=== PATIENT | female | born 1960 | race Caucasian/White ===

== ENCOUNTER 2016-12-22 04:12 | Emergency (ER) | payer OTHER ==
[~2016-12-22] VITALS: Ht 157.5 cm; Wt 65.8 kg
--- NOTE | ~2016-12-22 | EKG ---
[place] [address] [facility] [place] [address] ELECTROCARDIOGRAM REPORT Name: NAMITA WIN Room #: REG IRWIN Jon#: [id number] Admission: 12/22/16 Attend Phys: Discharge: Date of : 58 Report #: [id number] THIS REPORT FOR: //name// [facility] ED Test Date: 2016-12-22 Test Time: 04:29:09 Pat Name: NAMITA WIN Department: Room: Gender: F Pharmacist Technician: BLANCHE : 1960 Requested By: Heather Rodrigues Order Number: [id number] MD: Measurements Intervals [place] Rate: 59 P: 40 MO: 174 QRS: -1 QRSD: 97 T: 8 QT: 427 QTc: 423 Interpretive Statements Sinus rhythm Compared to ECG 12/31/2011 09:26:20 Right bundle-branch block no longer present Myocardial infarct finding no longer present [email or web address] By: 8 8 Daija Choe MD /YUE
--- NOTE | ~2016-12-22 | EKG ---
[place] [address] [place] [address] [facility] [place] [address] ELECTROCARDIOGRAM REPORT Name: NAMITA WIN Room #: [facility]P [facility] [id number] Admission: 12/22/16 Attend Phys: Discharge: 12/22/16 Date of : 58 Report #: [id number] THIS REPORT FOR: //name// [facility] ED Test Date: 2016-12-22 Test Time: 04:29:09 Pat Name: NAMITA WIN Department: Room: Gender: F Agronomist: BLANCHE : 1960 Requested By: Heather Rodrigues Order Number: [id number] MD: David Garcia Measurements Intervals [place] Rate: 59 P: 40 VT: 174 QRS: -1 QRSD: 97 T: 8 QT: 427 QTc: 423 Interpretive Statements Sinus rhythm Possible inferior infarct, age indeterminate Compared to ECG 12/31/2011 09:26:20 Right bundle-branch block no longer present Electronically Signed On 12-22-2016 8:43:23 CDT by David Garcia [email or web address] <ELECTRONICALLY SIGNED> By: David Garcia MD, [facility] 12/22/16 0843 [id number] [id number] David Garcia MD, [facility] /EPI
[~2016-12-22 04:12] MED LIST: MULTIVITAMINS PO; NOHOMEMEDICATIONS; TOPROL XL25 MG PO
[2016-12-22 04:55] LABS: BASOPHILS 0.6 % (0.0-2.0); EOSINOPHILS 1.6 % (0.0-3.0); HEMATOCRIT 37.1 % (37.0-47.0); HEMOGLOBIN 12.5 gm/dL (12.0-15.0); LYMPHOCYTES 26.8 % (24.0-44.0); MCH 31.4 pg (26.0-34.0); MCHC 33.8 g/dL (28.0-37.0); MCV 92.9 fL (80.0-100.0); MONOCYTES 6.2 % (1.0-8.0); PLATELET COUNT 218 thou/uL (150-400); POLYS 64.8 % (36.0-66.0); RDW 12.7 % (10.5-14.5); WBC 7.7 thou/uL (4.0-11.0)
[2016-12-22 04:57] LABS: MANUAL DIFF NO
[2016-12-22 05:02] LABS: CALCIUM 8.7 mg/dL (8.5-10.1); CREATININE 0.7 mg/dL (0.6-1.0); POTASSIUM 3.8 mmol/L (3.5-5.1)
[2016-12-22 06:28] VITALS: BP 119/66
[2016-12-22] MEDS ORDERED: ANTIVERT25 MG PO (07:08)
[2016-12-22] MEDS ORDERED: ZOFRAN ODT4 MG PO (07:08)
== END 2016-12-22 07:38 | disposition home or self-care (01) ==
LOC: ER 04:12
PROVIDERS: Emergency Medicine
DX: R42 Dizziness and giddiness (principal); R11.2 Nausea with vomiting, unspecified

== ENCOUNTER → 2017-06-09 | Outpatient (CLI) | payer OTHER ==
[~2017-06-09] MED LIST changes: +ANTIVERT25 MG PO; +LOPRESSOR25 PO; +ZOFRAN ODT4 MG PO
--- NOTE | ~2017-06-09 | 2DMMODE ---
[facility] [place] [address] 2 D/M-MODE ECHOCARDIOGRAM Name: NAMITA WIN Room #: REG CL [facility]#: [id number] Admission: 06/09/17 Attend Phys: Jose Orr Discharge: Date of : 58 Date of Service: 06/09/17 1847 Report #: [id number] THIS REPORT FOR: //name// APPROVED REPORT Study performed: 06/09/2017 15:05:06 EXAM: Comprehensive 2D, Doppler, and color-flow Echocardiogram Patient Location: Echo lab Status: routine BSA: 1.67 BP: 100/73 mmHg Other Information Study Quality: Technically Difficult/Adequate Indications Palpitations Echo Enhancing Agent Indication: Endocardial border delineation Agent(s) / Amount(s) Used: Optison 3 cc 2D Dimensions RVDd: 37.26 mm LVEF(%): 68.22 (>50%) IVSd: 7.31 (7-11mm) LVOT Diam: 16.60 (18-24mm) LVDd: 46.81 mm PWd: 7.57 (7-11mm) Ascending Ao: 26.08 (22-36mm) LVDs: 29.00 (25-40mm) Aortic Root: 22.83 mm IVC: 19.00 mm Hickey's LVEF: 68.22 % Volumes Left Atrial Volume (Systole) Single Plane 4CH: 26.10 mL Single Plane 2CH: 29.73 mL LA ESV Index: 18.00 mL/m2 Aortic Valve AoV Peak Lico.: 1.54 m/s AO Peak Gr.: 9.46 mmHg LVOT Max P.90 mmHg LVOT Max V: 0.85 m/s JENNYFER Vmax: 1.20 cm2 [facility] [place] [address] 2 D/M-MODE ECHOCARDIOGRAM Name: NAMITA WIN [facility] [id number] Admission: 06/09/17 Attend Phys: Jose Orr Discharge: Date of : 58 Date of Service: 06/09/17 1847 Report #: [id number] Mitral Valve E/A Ratio: 1.3 MV Decel. Time: 182.78 ms MV E Max Lico.: 0.94 m/s MV A Lico.: 0.72 m/s MV PHT: 53.01 ms IVRT: 115.34 ms Pulmonary Valve PV Peak Lico.: 0.90 m/s PV Peak Gr.: 3.23 mmHg Pulmonary Vein P Vein S: 0.68 m/s P Vein A: 0.23 m/s P Vein D: 0.52 m/s P Vein A Dur.: 138.4 msec P Vein S/D Ratio: 1.31 Tricuspid Valve TR Peak Lico.: 2.55 m/s RAP Estimate: 5.00 mmHg TR Peak Gr.: 25.96 mmHg PA Pressure: 31.00 mmHg Left Ventricle The left ventricle is normal size. There is normal LV segmental wall motion. There is normal left ventricular wall thickness. The left ventricular systolic function is normal. The left ventricular ejection fraction is within the normal range. LVEF is 55%. The left ventricular diastolic function is normal. Right Ventricle The right ventricle is normal size. The right ventricular systolic function is normal. Atria The left atrium size is normal. The right atrium size is normal. Aortic Valve The aortic valve is normal in structure. No aortic regurgitation is present. There is no aortic valvular stenosis. Mitral Valve The mitral valve is normal in structure. Trace mitral regurgitation. No evidence of mitral valve stenosis. Tricuspid Valve [address] [address] 2 D/M-MODE ECHOCARDIOGRAM Name: NAMITA WIN Room #: REG CL Alon#: [id number] Admission: 06/09/17 Attend Phys: [facility] Discharge: Date of : 58 Date of Service: 06/09/17 1847 Report #: [id number] The tricuspid valve is normal in structure. Trace tricuspid regurgitation. PAP is estimated at 31 mmHg. Pulmonic Valve Pulmonic valve is not well visualized. There is no pulmonic valvular regurgitation noted. Great Vessels The aortic root is normal in size. IVC is normal in size and collapses >50% with inspiration. Pericardium There is no pericardial effusion. <Conclusion> The left ventricular systolic function is normal. There is normal LV segmental wall motion. LVEF is 55%. The aortic valve is normal in structure. No aortic valvular stenosis or insufficiency. The mitral valve is normal in structure. Trace mitral regurgitation. Pulmonary artery pressure was approximately 30mmHg There is no pericardial effusion. <ELECTRONICALLY SIGNED> By: David Garcia MD, FACC 06/09/171846 46 46 David Garcia MD, FACC /INF
== END ==
LOC: CV 06:25
DX: I47.1 Supraventricular tachycardia (principal)

== ENCOUNTER → 2017-06-23 | Outpatient (CLI) | payer OTHER ==
[~2017-06-23] VITALS: Ht 157.5 cm; Wt 68.0 kg
--- NOTE | ~2017-06-23 | P ---
[facility] [place] [address] PROCEDURE REPORT Name: NAMITA WIN Room #: REG [facility].#: [id number] Admission: 06/23/17 Attend Phys: Jose Orr MD Discharge: Date of : 58 Report #: [id number] THIS REPORT FOR: //name// CC: Sukhdev Orr DATE OF SERVICE: 06/23/2017 PREOPERATIVE DIAGNOSIS: Supraventricular tachycardia. POSTOPERATIVE DIAGNOSIS: Typical atrioventricular apurva reentrant tachycardia. PROCEDURES PERFORMED: 1. SVT ablation, CPT code 46046. 2. EP with left atrial pacing and recording, CPT code 40890. 3. Program stimulation and pacing after IV, CPT code 28802. 4. 3D mapping EP, CPT CODE 85886. HISTORY OF PRESENT ILLNESS: The patient is a 57-year-old female with a longstanding history of SVT, recently in a local emergency room with recurrent SVT that terminates with IV metoprolol. She is here for EP study and ablation. ANESTHESIA: The patient underwent MAC anesthesia with no anesthesia complications. PROCEDURE: The patient underwent informed consent where we discussed the details of the procedure including the risks, which include, but are not limited to bleeding, infection, vascular damage, cardiac perforation as well as stroke or MS. Risks also include damage to the pilot station conduction system requiring a permanent pacemaker. She understood these risks and is willing to proceed. As such, she was brought to the EP laboratory in a fasting and sedated state and prepped and draped in a sterile fashion. I injected lidocaine to the bilateral groins and obtained access to the bilateral femoral veins times 4 placing sheaths using the modified Seldinger technique. In the right femoral vein, I placed an 8-Israeli and 6-Israeli short sheath and in the left femoral vein, I placed a 6 and 7-Israeli short sheath. Under fluoroscopy, I placed 3 quadripolar catheters into the HRA, His, and RV positions. I placed a decapolar catheter easily in the coronary sinus. Baseline measurements were taken and the patient was in sinus rhythm with a sinus cycle length of 725 milliseconds, a TN interval of 145 milliseconds, a QRS duration of 130 milliseconds, a QT interval of 405 milliseconds, an AH interval 65 milliseconds, and an HV interval 48 milliseconds. The patient does have a known right bundle branch block. Next, atrial burst pacing was performed, an AV block was noted at 290 milliseconds, atrial ERP was noted at 270 milliseconds at a [address] cycle length with evidence of double and single AV [facility] [address] [place] [address] PROCEDURE REPORT Name: NAMITA WIN Room #: REG [facility]#: [id number] Admission: 06/23/17 Attend Phys: Jose Orr MD Discharge: Date of : 58 Report #: [id number] apurva echoes. Next, with additional burst pacing, SVT was induced with a tachycardia cycle length of 300 milliseconds. The septal VA time was 45 milliseconds. Ventricular entrainment was performed multiple times, demonstrating a VAHV response. This was consistent with typical AV apurva reentrant tachycardia. I was able to terminate this and re-induce it several times from the HRA and RV catheters and was able to re-induce it with double atrial extrastimuli. I removed the HRA catheter and the sheath and exchange this for an SR0 and 4 mm [employer] Balderas ablation catheter. A detailed 3D geometry of the right atrium was created with specific emphasis of the His bundle, slow pathway region and the coronary sinus ostium. Next, ablation was performed at 50 garrison and 55 degrees and areas of nice potentials consistent with a slow pathway, but there were no junctionals. I initially performed a total of 4 ablation lesions. After performing 4 ablation lesions there, I performed additional pacing and I was still able to induce AVNRT with those first four ablation lesions, there were no junctionals noted. I performed an additional 3 ablation lesions, 2 of which were slightly higher and were about 12 mm from the His cloud. I then performed an additional ablation lesion slightly within the coronary sinus ostium. Again, there was no junctionals on these three doyle either. However, given the good lesions that we had created and the ideal atrial signals consistent with slow pathway electrograms, additional testing was now performed. Post-ablation, the patient was in sinus rhythm, atrial burst pacing was performed and AV block was noted at 310 milliseconds, atrial ERP was noted at 220 milliseconds at [address] cycle length, and double AV apurva echoes were delivered, and I could not induce SVT. VA block was noted at 270 milliseconds. Next, isoproterenol infusion was performed at 1 mcg per minute and there was an adequate response to this. AV block was now at 230 milliseconds. I performed aggressive atrial burst pacing and could no longer induce SVT. AV apurva ERP was noted at 260 milliseconds at a [address] cycle length, double atrial extrastimuli were also delivered and could not induce tachycardia, ventricular burst pacing was again performed and no SVT was induced. Despite not obtaining any echoes, this was a dramatic change in her inducibility. As such, we continued testing as the isoproterenol weared off and we could no longer induce any tachycardia. There was a rare single AV apurva echo noted with atrial extrastimuli, but there was no double atrial extrastimuli noted. Post-ablation, the patient remained in sinus rhythm with atrial cycle length of 575 milliseconds, TN interval 145 milliseconds, QRS duration 130 milliseconds, QT interval 390 milliseconds, HV interval 80 milliseconds, and HV interval 48 milliseconds with her known preexisting right bundle branch block. As such, all catheters and sheaths were pulled, hemostasis obtained, the patient awoke neurologically and hemodynamically intact, no complications and no significant bleeding. CONCLUSIONS: 1. Successful ablation of typical AV apurva reentrant tachycardia. [facility] [address] [place] [address] PROCEDURE REPORT Name: NAMITA WIN Room #: [facility]#: [id number] Admission: 06/23/17 Attend Phys: Jose Orr MD Discharge: Date of : 58 Report #: [id number] 2. Normal SA apurva function. 3. Normal AV apurva function. 4. Normal His-Purkinje function. 5. No other inducible arrhythmias on or off isoproterenol. <ELECTRONICALLY SIGNED> By: Jose Orr MD 06/24/17 1434 1058 1185 Jose Orr MD /nt
[2017-06-23 07:13] VITALS: BP 118/62
[2017-06-23 07:24] LABS: ABSOLUTE NEUTROPHILS 3.4 thou/uL (1.4-8.2); BASOPHILS 0.5 % (0.0-2.0); EOSINOPHILS 4.4 % (0.0-3.0); HEMATOCRIT 36.4 % (37.0-47.0); HEMOGLOBIN 12.2 gm/dL (12.0-15.0); LYMPHOCYTES 30.4 % (24.0-44.0); MCH 30.8 pg (26.0-34.0); MCHC 33.6 g/dL (28.0-37.0); MCV 91.6 fL (80.0-100.0); MONOCYTES 8.8 % (1.0-8.0); PLATELET COUNT 242 thou/uL (150-400); POLYS 55.9 % (36.0-66.0); RBC 3.98 mil/uL (4.20-5.00); RDW 12.9 % (10.5-14.5); WBC 6.1 thou/uL (4.0-11.0)
[2017-06-23 07:31] LABS: CALCIUM 8.7 mg/dL (8.5-10.1); CREATININE 0.7 mg/dL (0.6-1.0); POTASSIUM 3.9 mmol/L (3.5-5.1)
[2017-06-23 07:32] LABS: MANUAL DIFF NO
[2017-06-23 07:36] LABS: ALBUMIN 3.7 g/dL (3.4-5.0); TOTAL BILIRUBIN 0.2 mg/dL (<0.1-1.0); TOTAL PROTEIN 7.2 g/dL (6.4-8.2)
[2017-06-23 07:39] LABS: PROTIME 9.6 Seconds (9.3-11.4)
== END | disposition home or self-care (01) ==
LOC: CATH 06:35
PROVIDERS: Internal Medicine Cardiovascular Disease
DX: I47.1 Supraventricular tachycardia (principal); Z98.890 Other specified postprocedural states
CPT/HCPCS: 62110; 62900; 70005

== ENCOUNTER → 2021-05-25 | Outpatient (CLI) | payer OTHER | LOC: RAD 12:53 | PROVIDERS: ATTEND Family Medicine | DX: Z12.31 Encounter for screening mammogram for malignant neoplasm of breast (principal); M25.511 Pain in right shoulder; G89.29 Other chronic pain; M25.559 Pain in unspecified hip; N64.89 Other specified disorders of breast ==